=== PATIENT | female | born 1930 | race African-American/Black ===

== ENCOUNTER 2017-08-18 09:23 | Emergency (ER) | payer MEDICARE, MEDICAID ==
[~2017-08-18] VITALS: Ht 165.1 cm; Wt 82.0 kg
[2017-08-18] MEDS ORDERED: ALBU18HF2 IH (09:45)
[2017-08-18] MEDS ORDERED: CHOL100046 PO (09:45)
[2017-08-18] MEDS ORDERED: BENZ100C86 PO (09:45)
[2017-08-18] MEDS ORDERED: IPRATROPIUM BROMIDE (0.02%) 0.5MG/2.5ML NEB HHN STA (10:50)
[2017-08-18] MEDS ORDERED: ALBUTEROL (0.083%) 2.5MG/3ML NEB HHN STA (10:50)
[2017-08-18] MEDS ORDERED: PREDNISONE 20MG TABLET PO ONE (11:15)
[2017-08-18 13:10] VITALS: BP 172/82
== END 2017-08-18 14:59 | disposition home or self-care (01) ==
LOC: EDBD 09:23 → ER 14:54
DX: J45.909 Unspecified asthma, uncomplicated (principal); B34.9 Viral infection, unspecified; E03.9 Hypothyroidism, unspecified; I10 Essential (primary) hypertension; Z87.891 Personal history of nicotine dependence
CPT/HCPCS: 71045; 87804; 94640; 99285; J7512; J7611